=== PATIENT | male | born 1970 | race Caucasian/White ===

== ENCOUNTER → 2018-10-16 | Outpatient (CLI) | payer BC ==
--- NOTE | 2018-10-16 15:24 | REP ---
Abdominal ultrasound: History: Palpable abdominal masses. The patient reports palpable areas for the past year, growing in size. Findings: Scanning through the area of the palpable abnormalities demonstrates that they are in the subcutaneous fat of the anterior abdominal wall. There are several hyperechoic areas most compatible with inflamed fat lobules versus lipomas. In the right mid abdomen, there is a 1.4 x 1.6 x 1.1 cm hyperechoic area in the upper quadrant on the right. There is a 1.9 x 0.9 x 2.2 cm hyperechoic area with an adjacent smaller area. In the left mid abdomen, there is a hyperechoic area measuring 1.3 x 0.9 x 1.8 cm. In the left lower quadrant, there is a 1.3 x 1.1 x 1.3 cm hyperechoic area. Impression: The findings are most compatible with multiple small subcutaneous lipomas. CT scanning or MRI scanning might be more specific, if further imaging is felt to be clinically warranted. Clinical follow-up is recommended. Electronically Signed by Curtis Zhao MD 10/16/2018 06:14 P
== END ==
LOC: M RAD 14:06
PROVIDERS: ATTEND Physician Assistant Medical
DX: R22.9 Localized swelling, mass and lump, unspecified (principal)